=== PATIENT | male | born 1985 | race Two or more races ===

== ENCOUNTER 2019-05-02 07:28 | Emergency (ER) | payer OTHER ==
[~2019-05-02] VITALS: Ht 172.7 cm; Wt 81.6 kg
[2019-05-02 07:31] VITALS: BP 146/100
--- NOTE | 2019-05-02 07:55 | NUR ---
Patient discharged in custody in stable condition. Written and verbal after care instructions given. Patient verbalizes understanding of instruction.
== END 2019-05-02 07:57 | disposition home or self-care (01) ==
LOC: ER 07:31
DX: Z04.1 Encounter for examination and observation following transport accident (principal); V49.49XA Driver injured in collision with other motor vehicles in traffic accident, initial encounter; Y93.89 Activity, other specified; Y92.413 State road as the place of occurrence of the external cause; Y99.8 Other external cause status